=== PATIENT | female | born 1945 | race Two or more races ===

== ENCOUNTER 2017-09-26 15:31 | Outpatient (CLI) | payer OTHER | END 2017-09-26 16:40 | disposition home or self-care (01) | LOC: NUCLEAR 15:31 | DX: I82.402 Acute embolism and thrombosis of unspecified deep veins of left lower extremity (principal) ==

== ENCOUNTER → 2017-10-23 | Outpatient (CLI) | payer OTHER | END | disposition home or self-care (01) | LOC: RAD 14:27 | DX: R07.89 Other chest pain (principal) ==

== ENCOUNTER 2017-11-07 10:58 | Outpatient (CLI) | payer OTHER | END 2017-11-07 11:10 | disposition home or self-care (01) | LOC: MAMO-SONO 10:58 | DX: Z12.31 Encounter for screening mammogram for malignant neoplasm of breast (principal); Z87.898 Personal history of other specified conditions ==

== ENCOUNTER 2017-11-19 12:44 | Outpatient (CLI) | payer OTHER | END 2017-11-19 13:04 | disposition home or self-care (01) | LOC: NUCLEAR 12:44 | DX: M81.0 Age-related osteoporosis without current pathological fracture (principal); M85.9 Disorder of bone density and structure, unspecified ==

== ENCOUNTER 2018-11-26 15:33 | Emergency (ER) | payer OTHER ==
[~2018-11-26] VITALS: Ht 152.4 cm; Wt 65.8 kg
[2018-11-26] MEDS ORDERED: LOSARTAN POTASS25 MG (15:59)
[2018-11-26] MEDS ORDERED: NEURONTIN600 MG (16:00)
[2018-11-26] MEDS ORDERED: METOPROLOL ER-1 EAC1 (16:00)
[2018-11-26] MEDS ORDERED: ASPIR 8181 MG (16:00)
== END 2018-11-26 19:43 | disposition home or self-care (01) ==
LOC: ER 15:33
DX: G51.0 Bell's palsy (principal)

== ENCOUNTER 2019-05-28 14:36 | Outpatient (CLI) | payer OTHER ==
[~2019-05-28 14:36] MED LIST: ASPIR 8181 MG; LOSARTAN POTASS25 MG; METOPROLOL ER-1 EAC1; NEURONTIN600 MG
== END 2019-05-28 14:39 | disposition home or self-care (01) ==
LOC: MAMO-SONO 14:36
DX: N64.59 Other signs and symptoms in breast (principal); Z12.31 Encounter for screening mammogram for malignant neoplasm of breast

== ENCOUNTER 2019-06-03 13:11 | Outpatient (CLI) | payer OTHER | END 2019-06-03 14:25 | disposition home or self-care (01) | LOC: NUCLEAR 13:11 | DX: M85.80 Other specified disorders of bone density and structure, unspecified site (principal); M81.0 Age-related osteoporosis without current pathological fracture ==

== ENCOUNTER 2019-11-09 13:04 | Emergency (ER) | payer OTHER ==
[~2019-11-09] VITALS: Ht 152.4 cm; Wt 69.9 kg
[2019-11-09] MEDS ORDERED: LIPITOR40 MG (13:42)
[2019-11-09] MEDS ORDERED: NORFLEX100MG PO (15:09)
[2019-11-09] MEDS ORDERED: DICLOFENAC POTA50 MG PO (15:09)
== END 2019-11-09 15:44 | disposition home or self-care (01) ==
LOC: ER 13:04
DX: M54.5 Low back pain (principal); M25.552 Pain in left hip

== ENCOUNTER 2020-05-26 11:54 | Outpatient (CLI) | payer OTHER ==
[~2020-05-26 11:54] MED LIST changes: +DICLOFENAC POTA50 MG PO; +LIPITOR40 MG; +NORFLEX100MG PO
== END 2020-05-26 13:00 | disposition home or self-care (01) ==
LOC: RAD 11:54
DX: R07.89 Other chest pain (principal); M25.872 Other specified joint disorders, left ankle and foot

== ENCOUNTER 2020-10-25 11:32 | Outpatient (CLI) | payer OTHER | END 2020-10-25 11:37 | disposition home or self-care (01) | LOC: SONOGRAMA 11:32 | DX: R13.10 Dysphagia, unspecified (principal) ==

== ENCOUNTER 2021-01-16 11:09 | Outpatient (CLI) | payer OTHER | END 2021-01-16 11:15 | disposition home or self-care (01) | LOC: RAD 11:09 | DX: M43.16 Spondylolisthesis, lumbar region (principal); M54.5 Low back pain ==

== ENCOUNTER 2021-10-11 14:42 | Outpatient (CLI) | payer OTHER ==
[~2021-10-11 14:42] MED LIST changes: +MECLIZINE HCL25 MG PO
== END 2021-10-11 14:58 | disposition home or self-care (01) ==
LOC: MAMO-SONO 14:42
PROVIDERS: ATTEND General Practice
DX: N64.59 Other signs and symptoms in breast (principal)

== ENCOUNTER 2022-08-06 11:44 | Outpatient (CLI) | payer OTHER | END 2022-08-06 11:50 | disposition home or self-care (01) | LOC: RAD 11:44 | PROVIDERS: ATTEND General Practice | DX: M54.50 Low back pain, unspecified (principal) ==

== ENCOUNTER → 2023-12-16 09:25 | Outpatient (CLI) | payer OTHER ==
[~2023-12-16 09:25] MED LIST changes: +LOSARTAN POTAS100 MG PO; +METFORMIN HCL500 M4 PO; +METOPROLOL SUC100 MG PO
== END | disposition home or self-care (01) ==
LOC: NUCLEAR 09:25
PROVIDERS: ATTEND Orthopaedic Surgery
DX: M81.0 Age-related osteoporosis without current pathological fracture (principal)

== ENCOUNTER 2023-12-16 10:01 | Emergency (ER) | payer OTHER ==
[~2023-12-16] VITALS: Ht 139.7 cm; Wt 64.0 kg
[~2023-12-16 10:01] MED LIST changes: -LOSARTAN POTAS100 MG PO; -METFORMIN HCL500 M4 PO; -METOPROLOL SUC100 MG PO
[2023-12-16] MEDS ORDERED: LOSARTAN POTAS100 MG PO (10:33)
[2023-12-16] MEDS ORDERED: METFORMIN HCL500 M4 PO (10:33)
[2023-12-16] MEDS ORDERED: METOPROLOL SUC100 MG PO (10:34)
[2023-12-16] MEDS ORDERED: DEXAMETHASONE SODIUM PHOSPHATE 4 MG/ML VIAL IM STA (11:16)
[2023-12-16] MEDS ORDERED: KETOROLAC TROMETHAMINE 30 MG VIAL IM STA (11:16)
[2023-12-16] MEDS ORDERED: DEXAMETHASONE SODIUM PHOSPHATE 4 MG/ML VIAL ONE (11:22)
[2023-12-16] MEDS ORDERED: KETOROLAC TROMETHAMINE 30 MG VIAL ONE (11:22)
== END 2023-12-16 11:33 | disposition home or self-care (01) ==
LOC: ER 10:02
DX: M43.6 Torticollis (principal)
CPT/HCPCS: 96372; 99282; J1100; J1885